=== PATIENT | female | born 1990 | race Caucasian/White ===

== ENCOUNTER → 2020-02-26 09:58 | Outpatient (CLI) | payer BC ==
[2014-02-05 08:16] VITALS: BMI 21.7
[~2020-02-26 09:58] MED LIST: COREG6.25 MG PO; LISINOPRIL2.5 MG; PHENERGAN25 M1 PO
--- NOTE | 2020-02-28 10:52 | EC ---
PATIENT:LALITA SAENZ DATE OF SERVICE: 02/26/20 SEX: F MEDICAL RECORD: [id number] DATE OF : [birth year] [facility] AGE OF PATIENT: 29 ADMISSION DATE: 02/26/20 REFERRING PHYSICIAN: INTERPRETING PHYSICIAN: VIRGILIO COVARRUBIAS MD ECHOCARDIOGRAM REPORT ECHO CHARGES 4 ECHO COMPLETE Date: 02/26/20 CLINICAL DIAGNOSIS: MURMUR/ARRHYTHMIA ECHOCARDIOGRAPHIC MEASUREMENTS (adult normal given) AC root (d.<3.7cm) 2.7 cm LV Septum d (<1.2 cm> 1.1 cm Valve Excursion 1.3 cm LV Septum (systole) 1.2 cm Left Atria (s.<4.0cm> 3.3 cm LVPW d(<1.2cm) 0.90 cm RV (d.<2.3cm) 3.0 cm LVPW (sytole) 1.2 cm LV diastole(<5.6CM) 4.3 cm MV E-F(>70mm/sec) cm LV systole 2.7 cm LVOT Diameter 1.8 cm MV exc.(>10mm) 0.80 cm Est.ejection fraction (50-75%) % DOPPLER: LVIT cm/sec A 96.0 cm/sec E 112.0 cm/sec LA cm/sec RVSP 22 mmHg LVOT 91 cm/sec AOP1/2T m/s Asc. Ao 131 cm/sec RVOT 68 cm/sec RA cm/sec PA 90 cm/sec AV Gradient Peak 6.87 mmHg AV Mean 2.87 mmHg AV Area 2.0 cm MV Gradient Peak 8.56 mmHg MV Mean 3.27 mmHg MV Area cm COMMENTS: Napper Grinder: 2 JESSICA BYRD Power Grader Operator: 3 Dr. Ballesteros TAPE# PACS Pericardial Effusion N DATE OF SERVICE: Adequate 2D, color flow imaging, spectral Doppler, and M-Mode. No LVH. LV internal dimension is normal. Wall motion is normal . EF greater than or equal to 55%. Aortic valve is tricuspid. No evidence of stenosis by Doppler interrogation. Left atrium is normal. Mitral valve shows no prolapse. Trace MR. Right-sided chambers are grossly normal. Trace TR. TRANSINT:[id number] Voice Confirmation ID: [id number] DOCUMENT ID: [id number] ECHOCARDIOGRAM REPORT [id number] TIGUE,LALITA VIRGILIO COVARRUBIAS MD at 1052 CC: [id number] DICTATION DATE: 02/27/20 1452 NURSE OBGYN: 02/28/20 0058 DEP CLI 02/26/20 [id number] [place] [address]
== END | disposition home or self-care (01) ==
LOC: D.HCCECHO 09:30
PROVIDERS: ATTEND Internal Medicine Interventional Cardiology
DX: I42.9 Cardiomyopathy, unspecified (principal)